=== PATIENT | female | born 1985 | race Caucasian/White ===

== ENCOUNTER 2020-12-16 16:37 | Emergency (ER) | payer SELFPAY ==
[~2020-12-16] VITALS: Ht 157.5 cm; Wt 52.2 kg
--- NOTE | 2020-12-16 17:00 | NUR ---
PATIENT WAS MSE BY DR WADDELL IN ROOM 05A.
[2020-12-16] MEDS: IV NORMAL SALINE 100 ML BAG IV ONE (17:11)
[2020-12-16] MEDS: ONDANSETRON 4 MG/2 ML VIAL IV ONE (17:11)
[2020-12-16] MEDS: FAMOTIDINE. 20 MG/2 ML VIAL IV ONE (17:11)
[2020-12-16] MEDS: MAG HYDROX/AL HYDROX/SIMETH 30 ML LIQUID UDC PO ONE (17:11)
[2020-12-16] MEDS: HYDROCODONE/APAP 5-325MG TABLET PO ONE (17:11)
[2020-12-16] MEDS ORDERED: HYDROCODONE/APAP 5-325MG TABLET ONE (17:12)
[2020-12-16] MEDS ORDERED: ONDANSETRON 4 MG/2 ML VIAL ONE (17:13)
[2020-12-16] MEDS ORDERED: MAG HYDROX/AL HYDROX/SIMETH 30 ML LIQUID UDC ONE (17:13)
[2020-12-16] MEDS ORDERED: FAMOTIDINE. 20 MG/2 ML VIAL IV ONE (17:13)
[2020-12-16 17:18] LABS: CARBON DIOXIDE 24 mmol/L (21-32); CHLORIDE 101 mmol/L (98-107); CREATININE 0.7 mg/dL (0.6-1.3); GLUCOSE 92 mg/dL (74-106); HEMATOCRIT 41.1 % (31.2-41.9); MEAN CORPUSCULAR HEMOGLOBIN 32.4 uug (24.7-32.8); MEAN CORPUSCULAR VOLUME 92.7 fL (75.5-95.3); PLATELET COUNT (AUTO) 230 K/uL (179-408); POTASSIUM 4.2 mmol/L (3.5-5.1); UREA NITROGEN, BLOOD 7 mg/dL (7-18)
[2020-12-16 17:31] LABS: ALANINE AMINOTRANSFERASE 20 U/L (14-59); ALKALINE PHOSPHATASE 81 U/L (50-136); ASPARTATE AMINOTRANSFERASE 17 U/L (15-37); BILIRUBIN,TOTAL 0.5 mg/dL (0.2-1.0); LIPASE 80 U/L (73-393); TOTAL PROTEIN, SERUM 7.5 g/dL (6.4-8.2)
[2020-12-16 18:50] VITALS: BP 136/77
--- NOTE | 2020-12-16 18:50 | NUR ---
Patient discharged to home in stable condition. Written and verbal after care instructions given. Patient verbalizes understanding of instructions. Stressed follow up or return to ER for worsening s/s.
== END 2020-12-16 18:55 | disposition home or self-care (01) ==
LOC: ER 16:37
DX: R10.13 Epigastric pain (principal); F15.10 Other stimulant abuse, uncomplicated
CPT/HCPCS: 36415; 80053; 83690; 84702; 85025; 93005; 96374; 96375; 99284; J2405; J3490; A4663; J7030